=== PATIENT | female | born 1960 | race African-American/Black ===

== ENCOUNTER 2016-04-15 12:16 | Emergency (ER) | payer SELFPAY ==
[2016-04-15] VITALS (7 sets, daily range): BP systolic 193–286; BP diastolic 91–150; PULSE 80–87; RESP 20; O2SAT 98–100
[~2016-04-15] VITALS: Ht 157.5 cm; Wt 106.9 kg
[~2016-04-15 12:16] MED LIST: BACT800T5 PO; DICL75TA PO; DOXY100T PO; LISI-366 PO; PERC5TAB12 PO; ROBA750T PO
[2016-04-15] MEDS ORDERED: SODIUM CHLOR 0.9% 1000 ML INJ 1,000 ML IV ONE (12:27)
[2016-04-15] MEDS ORDERED: METH750T PO (12:33)
[2016-04-15] MEDS ORDERED: DICL75TA PO (12:33)
--- NOTE | 2016-04-15 12:42 | RADRPT ---
EXAM DATE/TIME: 04/15/2016 12:27 [facility] COMPARISON: No previous studies available for comparison. INDICATIONS : Stroke alert, transient right facial droop. RADIATION DOSE: 56.35 CTDIvol (mGy) This report was called by Dr. Zepeda to Dr. Aldridge at 1239 hrs. MEDICAL HISTORY : Non-responsive. SURGICAL HISTORY : Non-responsive. ENCOUNTER: Initial ACUITY: 1 day PAIN SCALE: 0/10 LOCATION: cranial TECHNIQUE: Multiple contiguous axial images were obtained of the head. Using automated exposure control and adj ustment of the mA and/or kV according to patient size, radiation dose was kept as low as reasonably a chievable to obtain optimal diagnostic quality images. FINDINGS: CEREBRUM: The ventricles are normal for age. No evidence of midline shift, mass lesion, hemorrhage or acute in farction. No extra-axial fluid collections are seen. POSTERIOR FOSSA: The cerebellum and brainstem are intact. The 4th ventricle is midline. The cerebellopontine angle i s unremarkable. EXTRACRANIAL: The visualized portion of the orbits is intact. SKULL: The calvaria is intact. No evidence of skull fracture. CONCLUSION: Unremarkable exam. Eliseo Zepeda MD on April 15, 2016 at 12:38 Board Certified Radiologist. This report was verified electronically.
[2016-04-15 12:43] LABS: I-STAT POTASSIUM 3.2 MMOL/L (3.5-4.9); I-STAT SODIUM 142 MMOL/L (138-146)
[2016-04-15 12:44] LABS: AUTOMATED NEUTROPHIL # 2.1 TH/MM3 (1.8-7.7); BASOPHIL % 0.7 % (0.0-2.0); EOSINOPHIL # 0.1 TH/MM3 (0-0.4); EOSINOPHIL % 1.7 % (0.0-4.0); HEMATOCRIT 40.6 % (35.0-46.0); LYMPHOCYTE # 3.8 TH/MM3 (1.0-4.8); MEAN CELL VOLUME 84.5 FL (80.0-100.0); MEAN CORPUSCULAR HEMOGLOBIN 28.3 PG (27.0-34.0); MEAN CORPUSCULAR HGB CONC 33.5 % (32.0-36.0); MONO % 7.7 % (0.0-8.0); NEUT % 31.9 % (16.0-70.0); PLATELET COUNT 207 TH/MM3 (150-450); RED BLOOD COUNT 4.81 MIL/MM3 (4.00-5.30); RED CELL DISTRIBUTION WIDTH 13.8 % (11.6-17.2); WHITE BLOOD COUNT 6.6 TH/MM3 (4.0-11.0)
[2016-04-15 12:45] LABS: HEMO FLAGS AUTO DIFF
[2016-04-15] MEDS ORDERED: POTASSIUM CHLORIDE 20 MEQ CONTROLLED RELEASE TAB PO ONE (12:45)
--- NOTE | 2016-04-15 12:45 | PD ---
HPI Chief Complaint: Stroke Alert Time Seen by Provider: 12:25 Travel History International Travel<30 days: No Contact w/Intl Traveler<30days: No Traveled to known affect area: No History of Present Illness HPI 55-year-old female was brought in by EMS for stroke alert. Patient states that she was up since 3:00 in the morning doing things around the house. Patient states that she got tired and sleepy and took a nap. Family member found her unresponsive for about a few minutes. EMS was called. Patient was awake and alert at the scene. Patient was confused when answering questions. The confusion was transient. Patient was transported to the ED for evaluation. Vital signs and blood sugar at the scene was normal. Patient denies any history of TIA or CVA. Patient has history hypertension on medication for that. Patient denies any history of diabetes or dyslipidemia. Patient is a nonsmoker. Patient denies any recent head injury. Patient denies any headache. Patient denies any chest pain or shortness of breath. Patient denies abdominal pain. Patient denies any focal weakness or numbness of extremity. EMS personnel state that she probably had some mild drooping left side of face earlier, transiently. EMS personnel state that the possible facial drooping resolved completely upon arrival. Patient has been taking lisinopril 40 mg daily for hypertension. Patient did not take her medication this morning. PFSH Past Medical History Arthritis: Yes Asthma: Yes Cancer: No Cardiovascular Problems: Yes (HTN) Diabetes: No Hepatitis: No Hiatal Hernia: No Hypertension: Yes Medical other: No Reproductive: Yes (ENLARGED UTERUS AND CYST L OVARY, DIAGNOSED ONE YR AGO) Respiratory: Yes (ASTHMA) Thyroid Disease: No Influenza Vaccination: No ?: Not : 3 Para: 3 Ovarian Cysts: Yes (RECENT DX OF MASS 3.5 X 4.5 CM ALSO LG FIBROID UTERUS) Tubal Ligation: Yes Past Surgical History Section: Yes (X 2) Genitourinary Surgery: Yes Gynecologic Surgery: Yes (C SECTION X3, TUBAL LIG.) Hysterectomy: Yes (FULL) Other Surgery: Yes Social History Alcohol Use: No (occ) Tobacco Use: No Substance Use: No Allergies-Medications (Allergen,Severity, Reaction): Coded Allergies: No Known Allergies (Verified , 04/15/16) Reported Meds & Prescriptions Reported Meds & Active Scripts Active Clonidine (Clonidine HCl) 0.1 Mg Tab 0.1 Mg PO BID Lisinopril 40 Mg Tab 40 Mg PO DAILY Reported Methocarbamol 750 Mg Tab 1,500 Mg PO TID Diclofenac Sodium DR (Diclofenac Sodium) 75 Mg Tabdr 75 Mg PO BID Review of Systems General / Constitutional: No: Fever Eyes: No: Visual changes HENT: No: Headaches Cardiovascular: No: Chest Pain or Discomfort Respiratory: No: Shortness of Breath Gastrointestinal: No: Abdominal Pain Genitourinary: No: Dysuria Musculoskeletal: No: Pain Skin: No Rash Neurologic: No: Weakness Psychiatric: No: Depression Endocrine: No: Polydipsia Hematologic/Lymphatic: No: Easy Bruising Physical Exam Narrative GENERAL: Well-nourished, well-developed patient. SKIN: Warm and dry. HEAD: Normocephalic. EYES: No scleral icterus. No injection or drainage. Pupils 3 mm equal reactive. NECK: Supple, trachea midline. No JVD or lymphadenopathy. CARDIOVASCULAR: Regular rate and rhythm without murmurs, gallops, or rubs. RESPIRATORY: Breath sounds equal bilaterally. No accessory muscle use. GASTROINTESTINAL: Abdomen soft, non-tender, nondistended. MUSCULOSKELETAL: No cyanosis, or edema. BACK: Nontender without obvious deformity. No CVA tenderness. Neurologic exam: Patient's awake and alert oriented 3. Patient moves all extremities well. No obvious focal neurological deficit. Data Data Last Documented VS Vital Signs Date Time Temp Pulse Resp B/P Pulse Ox O2 Delivery O2 Flow Rate FiO2 04/15/16 16:38 204/98 04/15/16 15:24 87 20 99 Nasal Cannula 2 Orders Diet Npo (04/15/16 Lunch) Activity Bed Rest (04/15/16 ) Electrocardiogram (04/15/16 ) I-Stat Creatinine (04/15/16 12:27) I-Stat Profile (04/15/16 12:27) Prothrombin Time / Inr (Pt) (04/15/16 12:27) Act Partial Throm Time (Ptt) (04/15/16 12:27) Complete Blood Count With Diff (04/15/16 12:27) Creatine Kinase (Cpk) (04/15/16 12:27) Ua Includes Microscopic (04/15/16 12:27) Drug Screen, Random Urine (04/15/16 12:27) Ct Brain W/O Iv Contrast(Rout) (04/15/16 ) Chest, Single Ap (04/15/16 ) Consult Neurology (04/15/16 ) Blood Glucose (04/15/16 12:27) Ecg Monitoring (04/15/16 12:27) Neuro Checks Q2HX12,Q4H (04/15/16 12:27) Nursing Bedside Swallow Assess .ONCE (04/15/16 12:27) Iv Access Insert/Monitor (04/15/16 12:27) NPO (04/15/16 12:27) Oximetry (04/15/16 12:27) Oxygen Administration (04/15/16 12:27) Sodium Chlor 0.9% 1000 Ml Inj (Ns 1000 M (04/15/16 12:27) Resp Oxygen Tod C Titrat 1-4 L (04/15/16 12:27) Mri Brain W/O Contrast (04/15/16 12:38) Mra Brain W/O Contrast (Cow) (04/15/16 12:38) Mra Carotids W Contrast (04/15/16 12:38) Potassium Chloride (Kcl) (04/15/16 12:45) (Hub Use Only)Inp Phy Cons/Ref (04/15/16 ) Hydralazine Inj (Apresoline Inj) (04/15/16 15:30) Hydralazine Inj (Apresoline Inj) (04/15/16 16:30) Gadodiamide Pf Inj (Omniscan Pf Inj) (04/15/16 16:27) Labetalol Inj (Trandate Inj) (04/15/16 17:15) Labs Laboratory Tests Test 04/15/16 04/15/16 12:22 12:57 White Blood Count 6.6 TH/MM3 Red Blood Count 4.81 MIL/MM3 Hemoglobin 13.6 GM/DL Bedside Hemoglobin 14.6 G/DL Hematocrit 40.6 % Bedside Hematocrit 43.0 % Mean Corpuscular Volume 84.5 FL Mean Corpuscular Hemoglobin 28.3 PG Mean Corpuscular Hemoglobin 33.5 % Concent Red Cell Distribution Width 13.8 % Platelet Count 207 TH/MM3 Mean Platelet Volume 9.1 FL Neutrophils (%) (Auto) 31.9 % Lymphocytes (%) (Auto) 58.0 % Monocytes (%) (Auto) 7.7 % Eosinophils (%) (Auto) 1.7 % Basophils (%) (Auto) 0.7 % Neutrophils # (Auto) 2.1 TH/MM3 Lymphocytes # (Auto) 3.8 TH/MM3 Monocytes # (Auto) 0.5 TH/MM3 Eosinophils # (Auto) 0.1 TH/MM3 Basophils # (Auto) 0.0 TH/MM3 CBC Comment AUTO DIFF Differential Comment AUTO DIFF CONFIRMED Platelet Estimate NORMAL Platelet Morphology Comment ENLARGED Prothrombin Time 10.7 SEC Prothromb Time International 1.0 RATIO Ratio Activated Partial 27.7 SEC Thromboplast Time Bedside Sodium 142 MMOL/L Bedside Potassium 3.2 MMOL/L Bedside Chloride MMOL/L Bedside Blood Urea Nitrogen 12 MG/DL Bedside Creatinine 0.8 MG/DL Bedside Glucose 117 MG/DL Total Creatine Kinase 190 U/L Urine Color LIGHT-YELLOW Urine Turbidity CLEAR Urine pH 7.5 Urine Specific [place] 1.007 Urine Protein NEG mg/dL Urine Glucose (UA) NEG mg/dL Urine Ketones NEG mg/dL Urine Occult Blood NEG Urine Nitrite NEG Urine Bilirubin NEG Urine Urobilinogen LESS THAN 2.0 MG/DL Urine Leukocyte Esterase NEG Urine RBC 2 /hpf Urine Squamous Epithelial <1 /hpf Cells MDM Medical Decision Making Medical Screen Exam Complete: Yes Emergency Medical Condition: Yes Interpretation(s) 12:44 PM. EKG shows sinus rhythm with nonspecific ST-T wave change. 1326 PM. Chest x-ray shows no acute consolidation. CT of the brain negative acute pathology. CBC within normal limit. Potassium 3.2. Differential Diagnosis Differential diagnosis including sleepiness, TIA, CVA, electrolyte abnormality. Narrative Course 55-year-old female with transient altered mental status and confusion and possible left-sided facial drooping. Patient's awake alert oriented and no focal neurological deficit now. Patient states that she fell asleep from exhaustion. Stroke alert was called. O2 2 L nasal cannula. Normal saline solution 70 cc an hour. The head of bed flat. Hydralazine 10 mg IV given. 1631 PM. Repeated hydralazine 10 mg IV. I spoke with neurologist Dr. Jacobs about MRI and MRA. Patient's cleared to be discharged per neurologist pending consultation with neurosurgeon. I spoke with neurosurgeon Dr. Amaro about MRI. Advised patient to observe and follow with personal physician. Labetalol 5 mg IV given. 1732 PM. Blood pressure came under control. Diagnosis Primary Impression: Altered mental status Qualified Code: R41.82 - Altered mental status, unspecified altered mental status type Additional Impression: Uncontrolled hypertension Patient Instructions: General Instructions Additional Instructions: Take blood pressure medications as directed. Aspirin daily. Check blood pressure daily. Follow-up with personal physician. Return if any problem, persistent elevated blood pressure. Med/Other Pt SpecificInfo: Prescription(s) given Scripts Clonidine 0.1 Mg Tab0.1 Mg PO BID #60 TAB Ref 0 Prov:Slade Aldridge MD 04/15/16 Lisinopril 40 Mg Tab40 Mg PO DAILY #30 TAB Ref 0 Prov:Slade Aldridge MD 04/15/16 Disposition: 01 DISCHARGE HOME Condition: Stable Slade Aldridge MD Apr 15, 2016 12:45
[2016-04-15 12:53] LABS: APTT (PATIENT) 27.7 SEC (24.3-30.1); PROTHROMBIN TIME - PATIENT 10.7 SEC (9.8-11.6)
[2016-04-15 13:05] LABS: CREATINE KINASE 190 U/L (26-192)
[2016-04-15 13:17] LABS: BLOOD, URINE NEG (NEG); GLUCOSE,URINE NEG (NEG); KETONE, URINE NEG (NEG); NITRITE,URINE NEG (NEG); PH, URINE 7.5 (5.0-8.5); SQUAMOUS EPITHELIAL CELL URINE <1 /hpf (0-5); URINE COLOR LIGHT-YELLOW (YELLW/STRAW)
--- NOTE | 2016-04-15 13:19 | RADRPT ---
EXAM DATE/TIME: 04/15/2016 12:32 [facility] COMPARISON: No previous studies available for comparison. INDICATIONS : Stroke alert MEDICAL HISTORY : None. SURGICAL HISTORY : None. ENCOUNTER: Initial ACUITY: 1 day PAIN SCORE: 0/10 LOCATION: Bilateral chest FINDINGS: A single view of the chest demonstrates the lungs to be symmetrically aerated without evidence of mas s, infiltrate or effusion. The cardiomediastinal contours are unremarkable. Osseous structures are intact. There are overlying ectrocardiogram leads. CONCLUSION: No acute disease. Eliseo Zepeda MD on April 15, 2016 at 13:17 Board Certified Radiologist. This report was verified electronically.
[2016-04-15 13:22] LABS: PLATELET ESTIMATE SMEAR NORMAL (NORMAL); PLATELET MORPHOLOGY ENLARGED (NORMAL); SCAN/DIFF AUTO DIFF CONFIRMED
--- NOTE | 2016-04-15 15:28 | RADRPT ---
EXAM DATE/TIME: 04/15/2016 14:43 [facility] COMPARISON: CT BRAIN W/O CONTRAST, April 15, 2016, 12:27. INDICATIONS : CVA. Right sided facial droop. MEDICAL HISTORY : Hypertension. SURGICAL HISTORY : section. Hysterectomy. ENCOUNTER: Subsequent ACUITY: 1 day PAIN SCORE: 0/10 LOCATION: head. TECHNIQUE: Multiplanar, multisequence MRI of the brain was performed without contrast. FINDINGS: There appears to be a cystic process in the pituitary fossa with no normal pituitary tissue clearly i dentified. Followup evaluation with contrasted pituitary protocol MRI would be recommended. There is no evidence of acute infarction. No intracranial hemorrhage is noted. There is occasional mi nimal benign appearing white matter signal change. The ventricles are symmetric and normal. There is mild mucosal disease in occasional ethmoid sinuses. Mild disease is present in the left mast oids. CONCLUSION: Cystic process in the pituitary fossa. Follow up evaluation with contrasted pituitary protocol MRI wo uld be recommended. No acute intracranial findings. Vickey Sommers MD on April 15, 2016 at 15:22 Board Certified Radiologist. This report was verified electronically.
[2016-04-15] MEDS ORDERED: hydrALAZINE HCL 20 MG/ML VIAL IV PUSH ONE ×2 (15:30→16:30)
--- NOTE | 2016-04-15 15:31 | RADRPT ---
EXAM DATE/TIME: 04/15/2016 14:43 [facility] COMPARISON: No previous studies available for comparison. INDICATIONS : CVA. Right facial droop. MEDICAL HISTORY : Hypertension. SURGICAL HISTORY : section. Hysterectomy. ENCOUNTER: Subsequent ACUITY: 1 day PAIN SCORE: 0/10 LOCATION: head Please note a normal MRA of the brain does not entirely exclude the possibility of a small aneurysm, nor the possibility of distal intracranial vessel disease. TECHNIQUE: 3D time of flight MRA was performed. Source images, multiplanar STS MIP, and 3D volume MIP reconstru ctions were reviewed. FINDINGS: There is excellent visualization of the major intracranial arteries out to the second-order branch ve ssels. The A1 segment of left anterior cerebral artery is hypoplastic. A 2 segment is azygous. There is no evidence for aneurysm, vessel truncation or stenosis, and no evidence for vascular malformatio n. CONCLUSION: No acute [place] vascular abnormalities Vickey Sommers MD on April 15, 2016 at 15:27 Board Certified Radiologist. This report was verified electronically.
--- NOTE | 2016-04-15 16:09 | RADRPT ---
EXAM DATE/TIME: 04/15/2016 14:43 [facility] COMPARISON: No previous studies available for comparison. INDICATIONS : Stenosis. CVA CONTRAST: 20 cc Omniscan (gadodiamide) IV MEDICAL HISTORY : Hypertension. SURGICAL HISTORY : section. Hysterectomy. ENCOUNTER: Subsequent ACUITY: 1 day PAIN SCORE: 0/10 LOCATION: neck Percent stenosis is calculated using the diameter of the stenotic region over the diameter of the nor mal distal internal carotid artery. TECHNIQUE: Bolus infused MRA of the extracranial circulation was performed using a neurovascular coil. Post pro cessing was performed including rotationg subvolume maximum intensity projections of each carotid art gavin, rotating full volume maximum intensity projections of both carotid arteries, sagittal and frank l sliding thin slab reformations of each carotid artery, and left oblique sliding thin slab reformati on through the aortic arch to include the origin of the arch branch vessels. FINDINGS: AORTIC ARCH: There is a three vessel origin of the great vessels from the aorta. No evidence of ostial narrowing. RIGHT CAROTID: The common carotid artery is intact. The carotid bulb has a normal configuration without ulceration or narrowing. The internal carotid artery lumen is smooth without stenosis. The external carotid ar saranya is intact. LEFT CAROTID: The common carotid artery is intact. The carotid bulb has a normal configuration without ulceration or narrowing. The internal carotid artery lumen is smooth without stenosis. The external carotid ar saranya is intact. VERTEBRALS: The vertebral arteries have a symmetric diameter. No stenotic lesions are seen. CONCLUSION: 1. Normal examination. Leandro West MD on April 15, 2016 at 15:51 Board Certified Radiologist. This report was verified electronically.
[2016-04-15] MEDS ORDERED: GADODIAMIDE PF 287 MG/ML 20 ML VIAL (for RAD MRI) IV ONE (16:27)
[2016-04-15] MEDS ORDERED: LISI40TA PO (16:34)
[2016-04-15] MEDS ORDERED: CLON0.1T PO (16:35)
[2016-04-15] MEDS ORDERED: LABETALOL HCL 100 MG/20 ML VIAL IV PUSH ONE (17:15)
[2016-04-16 00:13] LABS: AMPHETAMINE, URINE NEG (NEG); BARBITURATES, URINE NEG (NEG); COCAINE, URINE NEG (NEG)
--- NOTE | 2016-04-16 23:09 | EKG ---
Date Performed: 04/15/2016 Time Performed: 12:41:06 PTAGE: 55 years EKG: Sinus rhythm WITH SINUS ARRHYTHMIA NONSPECIFIC T-WAVE ABNORMALITY BORDERLINE ECG PREVIOUS TRACING : 12/23/2013 07.37 DOCTOR: Hannah Herrera Interpretating Date/Time 04/16/2016 23:03:24
== END 2016-04-15 17:50 | disposition home or self-care (01) ==
LOC: NEPC 12:16
DX: R41.82 Altered mental status, unspecified (principal); I10 Essential (primary) hypertension; J45.909 Unspecified asthma, uncomplicated; I49.8 Other specified cardiac arrhythmias; R29.810 Facial weakness; Z79.899 Other long term (current) drug therapy
CPT/HCPCS: 70450; 70544; 70548; 70551; 71010; 80307; 81001; 82550; 82565; 82947; 84132; 84295; 84520; 85025; 85610; 85730; 93005; 96361; 96374; 96375; 96376; 99285; A9579; J0360; J7030